=== PATIENT | male | born 1975 | race Caucasian/White ===

== ENCOUNTER 2016-09-11 00:36 | Emergency (ER) | payer MEDICAID ==
[2016-09-11] MEDS ORDERED: OPTIRAY 350 100 ML VIAL HMH IV ONE (00:37)
[2016-09-11] MEDS ORDERED: SODIUM CHLORIDE 0.9% 1,000 ML ONE (02:06)
[2016-09-11] MEDS ORDERED: DILAUDID 1 MG/ML AMP ONE (16:50)
[2016-09-11] MEDS ORDERED: CLINDAMYCIN 600 MG/4 ML VIAL ONE (16:50)
[2016-09-11] MEDS ORDERED: ONDANSETRON ODT 4 MG TAB ONE (16:50)
== END 2016-09-11 04:43 | disposition home or self-care (01) ==
LOC: ER 00:36
DX: R10.84 Generalized abdominal pain (principal); R11.2 Nausea with vomiting, unspecified; J41.1 Mucopurulent chronic bronchitis
CPT/HCPCS: 36415; 74177; 80053; 81001; 83690; 85025; 96360; 96361